=== PATIENT | male | born 1950 | race Caucasian/White ===

== ENCOUNTER 2018-09-01 21:14 | Inpatient (IN) | payer MEDICARE ==
[~2018-09-01] VITALS: Ht 170.2 cm; Wt 95.4 kg
[2018-09-01 21:27] LABS: BASOPHILS ABSOLUTE AUTO 0.07 K/mm3 (0.00-0.23); BASOPHILS PERCENT AUTO 1 % (0-2); EOSINOPHILS ABSOLUTE AUTO 0.18 K/mm3 (0.00-0.68); EOSINOPHILS PERCENT AUTO 1 % (0-6); Hematocrit 44.9 % (37.0-53.0); IMMATURE GRAN ABSOLUTE AUTO 0.07 K/mm3 (0.00-0.10); IMMATURE GRAN PERCENT AUTO 1 % (0-1); LYMPHOCYTES ABSOLUTE AUTO 1.18 K/mm3 (0.84-5.20); LYMPHOCYTES PERCENT AUTO 8 % (21-46); MONOCYTES ABSOLUTE AUTO 0.68 K/mm3 (0.16-1.47); MONOCYTES PERCENT AUTO 5 % (4-13); Mean Corpuscular HGB 28.9 pg (26.0-34.0); Mean Corpuscular HGB Conc 31.2 g/dL (31.5-36.5); Mean Corpuscular Volume 93 fL (80-100); Mean Platelet Volume 10.2 fL (9.1-12.4); NEUTROPHILS ABSOLUTE AUTO 12.37 K/mm3 (1.96-9.15); NEUTROPHILS PERCENT AUTO 85 % (41-73); Platelet Count 381 K/mm3 (150-400); RDW Coefficient Variation 13.9 % (11.7-14.2); RDW Standard Deviation 47.3 fL (35.1-46.3); Red Blood Cell Count 4.85 M/mm3 (4.30-5.90); White Blood Cell Count 14.55 K/mm3 (4.00-11.30)
[2018-09-01] MEDS ORDERED: Prinivil10 MG PO (21:37)
[2018-09-01] MEDS ORDERED: Lipitor20 MG PO (21:38)
[2018-09-01] MEDS ORDERED: Aspir 8181 MG PO (21:38)
[2018-09-01] MEDS ORDERED: FURO20 PO (21:38)
[2018-09-01] MEDS ORDERED: METF500 PO (21:38)
[2018-09-01] MEDS ORDERED: CARV3.125 PO (21:39)
[2018-09-01 21:47] LABS: Alanine Aminotransfer (ALT/SGP 48 U/L (12-78); Albumin, Blood 3.3 g/dL (3.4-5.0); Albumin/Globulin Ratio 0.8 (0.8-1.8); Alk Phos 71 U/L (50-136); Anion Gap 6 mmol/L (6-16); Aspartate Aminotrans (AST/SGOT 32 U/L (12-37); Bilirubin, Total 0.7 mg/dL (0.1-1.0); Blood Urea Nitrogen 34 mg/dL (8-24); Bun/Creatinine Ratio 27.4 (12.0-20.0); CO2, Blood 27 mmol/L (21-32); Calcium, Blood 9.1 mg/dL (8.5-10.1); Chloride, Blood 105 mmol/L (98-108); Creatinine, Blood 1.24 mg/dL (0.60-1.20); Globulin, Blood 4.3 g/dL (2.2-4.0); Glomerular Filtration Rate >60 (60-); Glucose, Blood 185 mg/dL (70-99); Potassium, Blood 4.4 mmol/L (3.5-5.5); Sodium, Blood 138 mmol/L (136-145); Total Protein, Blood 7.6 g/dL (6.4-8.2)
--- NOTE | 2018-09-02 04:11 | NUR ---
0250 68 Y/O MALE ADMITTED TO RM 305 FROM ER. THIS NURSE HAD MACHINE SNELLER COME TO ROOM AND LOCK UP MONEY FROM WALLET IN HOSPITAL SAFE. PT INITIALLY THOUGHT HE HAD BROUGHT HIS WALLET AND 6 PILL BOTTLES WITH HIM WITH THIS NURSE CALLING ER AND SPEAKING WITH CARINE MARIA REGARDING THIS ISSUE AND SHE VOICED PT HAD BEEN ADVISED THAT NO PILL BOTTLES WERE WITH HIM UPON PRESENTATION TO ER. ER STAFF LOOKED THRU LINEN AND WAS UNABLE TO LOCATE WALLET CLAIMED. THIS NURSE ADVISED EMMIE SILVA RN OF THE ABOVE. PT DENIES CHEST PAIN, NAUSEA OR SOB. PT ALERT AND ORIENTED X 3. PT GIVEN PUDDING AND ICE CREAM PRIOR TO SLEEPING THIS AM.
[2018-09-02 04:45] LABS: BASOPHILS ABSOLUTE AUTO 0.08 K/mm3 (0.00-0.23); BASOPHILS PERCENT AUTO 1 % (0-2); EOSINOPHILS PERCENT AUTO 1 % (0-6); Hemoglobin 14.4 g/dL (13.5-17.5); IMMATURE GRAN ABSOLUTE AUTO 0.05 K/mm3 (0.00-0.10); IMMATURE GRAN PERCENT AUTO 0 % (0-1); LYMPHOCYTES ABSOLUTE AUTO 1.25 K/mm3 (0.84-5.20); LYMPHOCYTES PERCENT AUTO 9 % (21-46); MONOCYTES ABSOLUTE AUTO 0.68 K/mm3 (0.16-1.47); MONOCYTES PERCENT AUTO 5 % (4-13); Mean Corpuscular HGB 29.3 pg (26.0-34.0); Mean Corpuscular HGB Conc 30.6 g/dL (31.5-36.5); Mean Platelet Volume 10.3 fL (9.1-12.4); NEUTROPHILS ABSOLUTE AUTO 11.68 K/mm3 (1.96-9.15); NEUTROPHILS PERCENT AUTO 84 % (41-73); Platelet Count 332 K/mm3 (150-400); RDW Coefficient Variation 14.1 % (11.7-14.2); RDW Standard Deviation 49.3 fL (35.1-46.3); Red Blood Cell Count 4.92 M/mm3 (4.30-5.90); White Blood Cell Count 13.84 K/mm3 (4.00-11.30)
[2018-09-02 04:46] LABS: Mean Corpuscular Volume 96 fL (80-100)
[2018-09-02 05:04] LABS: Alanine Aminotransfer (ALT/SGP 48 U/L (12-78); Albumin, Blood 3.4 g/dL (3.4-5.0); Albumin/Globulin Ratio 0.8 (0.8-1.8); Alk Phos 75 U/L (50-136); Anion Gap 6 mmol/L (6-16); Aspartate Aminotrans (AST/SGOT 29 U/L (12-37); Bilirubin, Total 0.7 mg/dL (0.1-1.0); Blood Urea Nitrogen 33 mg/dL (8-24); Bun/Creatinine Ratio 30.3 (12.0-20.0); CO2, Blood 27 mmol/L (21-32); Calcium, Blood 9.1 mg/dL (8.5-10.1); Chloride, Blood 103 mmol/L (98-108); Creatinine, Blood 1.09 mg/dL (0.60-1.20); Globulin, Blood 4.4 g/dL (2.2-4.0); Glomerular Filtration Rate >60 (60-); Glucose, Blood 135 mg/dL (70-99); Potassium, Blood 4.3 mmol/L (3.5-5.5); Sodium, Blood 136 mmol/L (136-145); Total Protein, Blood 7.8 g/dL (6.4-8.2)
--- NOTE | 2018-09-02 05:54 | NUR ---
0530 PT TROPONIN 0.076 (PREVIOUS LEVEL WAS 0.075). NO SIGNIFICANT CHANGE SINCE LAST LAB DRAW AND THUS MD WILL NOT BE NOTIFED. THIS NURSE ADVISED JANY AQUINO RN OF THIS INFO.
--- NOTE | 2018-09-02 15:30 | NUR ---
PATIENT REPORTED TO FEELING LIGHT HEADED AND DIZZY. VITALS TAKEN RESULTING IN LOW BP. DOCTOR NOTIFIED, CARDIAC LABS ORDERED AND BOLUS GIVEN PER ORDER. PATIENT APPEARS TO FALL ASLEEP VERY EASILY BUT IS ABLE TO BE AROUSED . NO COMPLAINTS OF CHEST PAIN OR SOB. NO DISTRESS NOTED OTHER THAN THOSE LISTED. WILL CONTINUE TO MONITOR.
--- NOTE | 2018-09-02 17:58 | NUR ---
PATIENT HAS IMPROVED SINCE NS BOLUS. TROP LEVELS CONTINUE TO DECLINE. NO COMPLAINTS OF CHEST PAIN,SOB OR NV. PATIENT HAS IMPROVED IN MENTATION AND IS ALERT AND ORIENTED AT THIS TIME. HE STATED EARLIER HE IS NOT USALLY THIS TIRED. HE IS HAVING OUTPUT WHICH REMAINS DARK YELLOW. PATIENT ENCOURAGED TO DRINK.
--- NOTE | 2018-09-03 04:09 | NUR ---
SHIFT SUMMARY: 68 Y/O MALE RESTED COMFORTABLY IN BED ALL SHIFT WITH NO C/O PAIN, SOB OR NAUSEA. PT SLEPT IN HIGH FOWLERS ALL SHIFT. PT IS ALERT AND ORIENTED X 3, ABLE TO TRANSFER AND AMBULATE BATHROOM AND BACK WITHOUT ISSUE. PTS BED LOW POSITION, CALL LIGHT AT SIDE.
--- NOTE | 2018-09-03 05:28 | NUR ---
7600 THIS NURSE RECEIVED CALL FROM COMPENSATION SPECIALIST--MORE, THAT PATIENT HAD 15 BEAT V-TACH AND THEN IMMEDIATELY CONVERTED TO NSR. PT APPEARS HAPPY, DENIES CHEST PAIN OR SOB. PT VITAL SIGNS ARE STABLE. MEMIE SILVA RN CHARGE NURSE ADVISED. WILL CONTINUE TO MONITOR.
[2018-09-03 05:58] LABS: BASOPHILS ABSOLUTE AUTO 0.05 K/mm3 (0.00-0.23); BASOPHILS PERCENT AUTO 0 % (0-2); EOSINOPHILS ABSOLUTE AUTO 0.27 K/mm3 (0.00-0.68); EOSINOPHILS PERCENT AUTO 2 % (0-6); Hematocrit 42.9 % (37.0-53.0); Hemoglobin 13.2 g/dL (13.5-17.5); IMMATURE GRAN ABSOLUTE AUTO 0.04 K/mm3 (0.00-0.10); IMMATURE GRAN PERCENT AUTO 0 % (0-1); LYMPHOCYTES ABSOLUTE AUTO 1.36 K/mm3 (0.84-5.20); LYMPHOCYTES PERCENT AUTO 10 % (21-46); MONOCYTES PERCENT AUTO 9 % (4-13); Mean Corpuscular HGB 29.3 pg (26.0-34.0); Mean Corpuscular HGB Conc 30.8 g/dL (31.5-36.5); Mean Corpuscular Volume 95 fL (80-100); Mean Platelet Volume 10.9 fL (9.1-12.4); NEUTROPHILS ABSOLUTE AUTO 11.16 K/mm3 (1.96-9.15); NEUTROPHILS PERCENT AUTO 79 % (41-73); Platelet Count 336 K/mm3 (150-400); RDW Coefficient Variation 14.1 % (11.7-14.2); RDW Standard Deviation 49.7 fL (35.1-46.3); White Blood Cell Count 14.08 K/mm3 (4.00-11.30)
--- NOTE | 2018-09-03 08:00 | NUR ---
PT PLEASANT COOP A/O. SOME PAIN 4/10 IN ABD. LOW RT. THERE IS BRUISING NOTED. SMALL HARDNESS BELOW SKIN. MAYBE 2-[address] BLANCHARD. H/R REG, NO MURMER NOTED. ON TELE: NSR WITH OCC PVC'S RATE 81. 15 BEAT RUN VTACH AT 0430 THIS AM. PT STATED ASYMPTOMATIC. BT X4 LAST BM THIS AM. VOIDS PER BATHROOM. SBA. BED IN LOW POSITION, CALL LITE IN REACH, CALLS APPROP
--- NOTE | 2018-09-03 08:12 | NUR ---
0700 pt c/o on low rt abd horizontal firmness noted. 07/11. vss, called dr youngblood. ct abd pelvis w/o contrast
--- NOTE | 2018-09-03 08:16 | NUR ---
WITH PRIOR CALL TO DR COLMENARES ADVISLoreta PT HAD 15 BEAT RUN VTACH THIS AM AT 0430 PER LORENZO HAWK. PT WAS SLEEPING, NOT AWARE OF VTACH RUN
--- NOTE | 2018-09-03 12:51 | NUR ---
EXTRA DOSE OF ROCEFIN, CALLED DR BLANCHARD TO CLARIFY. SHE DOES WANT GIVEN NOW.
--- NOTE | 2018-09-03 13:25 | NUR ---
Spiritual care intitial visit: Mr. Fam was very tired and politely dismissive of pastoral care. Advised I would remain available to provide support and encouragement.
--- NOTE | 2018-09-03 14:23 | NUR ---
PHYLLIS, CENTRAL OFFICE REPAIRER SUPERVISOR CALLED 7 BEAT RUN VTACH AT 1423. PT ASYMPTOMATIC. NAPPING IN CHAIR. WOKE PT. HE STATES NO SYMPTOMS.
--- NOTE | 2018-09-03 15:42 | NUR ---
FAXED REQUEST TO [facility] FOR MED RECORDS . PLACED REQUEST IN CHART.
--- NOTE | 2018-09-03 15:43 | NUR ---
CALLED DR BLANCHARD. 7 BEAT RUN VTACH AT 1420. SHE ORDERED CARDIAC CONSULT
--- NOTE | 2018-09-03 17:00 | NUR ---
pt vitals show pulse 37. rechecked with tele. has not been down to 37. running at 62.
--- NOTE | 2018-09-03 17:25 | NUR ---
PT BLADDER SCAN 465 VOIDED OF 225, NET RETAINING 240
--- NOTE | 2018-09-03 17:57 | NUR ---
PT PLEASANT COOP TODAY. PAIN IN ABD RESOLVED. EATING WELL. BLADDER SCAN SHOWED 465 THEN UNINATED 225. RESIDUAL 240. DID HAVE BM TODAY. FEELS SOME BLOATED AT THIS TIME. FEELS A LITTLE POORLY OVERALL . NO OTHER CONCERNS AT THIS TIME. BED IN LOW POSITION, CALL LITE IN REACH, CALLS APPROP
--- NOTE | 2018-09-03 18:16 | NUR ---
TLE CALLED PT HAD RUN VTACH, 25 BEATS. NEW VS. 132/84. PULSE PER TELE NSR AT 70. PT STATES FEELS A LITTLE POORLY, BUT OKAY. FEELS A LITTLE BLOATED. STATES HAD BM TODAY.
--- NOTE | 2018-09-03 18:18 | NUR ---
ORDERS FROM DR BLANCHARD. PROCALCITONIN LAB AND TRY CLL DR CASTILLO AGAIN
--- NOTE | 2018-09-03 18:21 | NUR ---
LMTC WITH DR CASTILLO ANS SVC. PER REQUEST OF DR BLANCHARD
[2018-09-04 04:48] LABS: BASOPHILS ABSOLUTE AUTO 0.06 K/mm3 (0.00-0.23); BASOPHILS PERCENT AUTO 1 % (0-2); EOSINOPHILS ABSOLUTE AUTO 0.23 K/mm3 (0.00-0.68); EOSINOPHILS PERCENT AUTO 2 % (0-6); Hematocrit 43.6 % (37.0-53.0); Hemoglobin 13.5 g/dL (13.5-17.5); IMMATURE GRAN ABSOLUTE AUTO 0.03 K/mm3 (0.00-0.10); IMMATURE GRAN PERCENT AUTO 0 % (0-1); LYMPHOCYTES ABSOLUTE AUTO 1.25 K/mm3 (0.84-5.20); LYMPHOCYTES PERCENT AUTO 11 % (21-46); MONOCYTES ABSOLUTE AUTO 0.92 K/mm3 (0.16-1.47); MONOCYTES PERCENT AUTO 8 % (4-13); Mean Corpuscular HGB 29.1 pg (26.0-34.0); Mean Corpuscular Volume 94 fL (80-100); Mean Platelet Volume 10.6 fL (9.1-12.4); NEUTROPHILS PERCENT AUTO 79 % (41-73); Platelet Count 335 K/mm3 (150-400); RDW Coefficient Variation 14.1 % (11.7-14.2); RDW Standard Deviation 48.7 fL (35.1-46.3); Red Blood Cell Count 4.64 M/mm3 (4.30-5.90); White Blood Cell Count 11.79 K/mm3 (4.00-11.30)
[2018-09-04 05:14] LABS: Alanine Aminotransfer (ALT/SGP 33 U/L (12-78); Albumin, Blood 2.9 g/dL (3.4-5.0); Albumin/Globulin Ratio 0.7 (0.8-1.8); Alk Phos 67 U/L (50-136); Anion Gap 2 mmol/L (6-16); Aspartate Aminotrans (AST/SGOT 14 U/L (12-37); Bilirubin, Total 0.6 mg/dL (0.1-1.0); Blood Urea Nitrogen 22 mg/dL (8-24); Bun/Creatinine Ratio 22.2 (12.0-20.0); CO2, Blood 32 mmol/L (21-32); Calcium, Blood 8.4 mg/dL (8.5-10.1); Chloride, Blood 105 mmol/L (98-108); Creatinine, Blood 0.99 mg/dL (0.60-1.20); Globulin, Blood 4.4 g/dL (2.2-4.0); Glomerular Filtration Rate >60 (60-); Glucose, Blood 117 mg/dL (70-99); Potassium, Blood 4.8 mmol/L (3.5-5.5); Sodium, Blood 139 mmol/L (136-145); Total Protein, Blood 7.3 g/dL (6.4-8.2)
--- NOTE | 2018-09-04 06:28 | NUR ---
SHIFT SUMMARY PT SLEPT WELL T/O NIGHT. AOX4. VSS. TELE IN PLACE @NSR W/OCCASIONAL PVC'S & HR 72 PER PCU ONLINE MERCHANDISING COORDINATOR. DENIES SOB, DIZZINESS OR NAUSEA. REPORTS 4/10 PAIN ONLY W/PALPATION OF RUQ ABD, DENIES NEED FOR PAIN MEDICATION. HAS BEEN NPO SINCE MIDNIGHT FOR ANTICIPATED HIDA SCAN THIS AM. NS RUNNING @100ML/HR. INDEPENDENT TO RESTROOM. CALL LIGHT IN REACH.
--- NOTE | 2018-09-04 08:17 | NUR ---
PATIENT DID NOT EAT BREAKFAST THIS SHIFT DUE TO BEING NPO AT THIS TIME DUE TO A PROCEDURE. BREAKFST IS BEING HELD FOR AFTER PROCEDURE.
--- NOTE | 2018-09-04 15:53 | NUR ---
SHIFT SUMMARY NO ACUTE CHANGES. PATIENT DENIES PAIN, NAUSEA, AND SHORTNESS OF BREATH. PATIENT STATES ABDOMEN IS ONLY PAINFUL IF PALPATED. PATIENT HAD ONE 7 BEAT RUN OF VTACH THIS AM, HOSPITALIST INFORMED. ORDERS FOR MAGNESIUM LAB GIVEN. HIDA SCAN COMPLETED. PATIENT UP INDEPENDENTLY IN ROOM. CALL LIGHT IN REACH, WILL CONTINUE TO MONITOR.
[2018-09-05 04:58] LABS: BASOPHILS ABSOLUTE AUTO 0.09 K/mm3 (0.00-0.23); BASOPHILS PERCENT AUTO 1 % (0-2); EOSINOPHILS PERCENT AUTO 2 % (0-6); Hematocrit 44.3 % (37.0-53.0); Hemoglobin 13.8 g/dL (13.5-17.5); IMMATURE GRAN ABSOLUTE AUTO 0.05 K/mm3 (0.00-0.10); IMMATURE GRAN PERCENT AUTO 0 % (0-1); LYMPHOCYTES ABSOLUTE AUTO 1.29 K/mm3 (0.84-5.20); LYMPHOCYTES PERCENT AUTO 10 % (21-46); MONOCYTES ABSOLUTE AUTO 0.88 K/mm3 (0.16-1.47); MONOCYTES PERCENT AUTO 7 % (4-13); Mean Corpuscular HGB 29.2 pg (26.0-34.0); Mean Corpuscular HGB Conc 31.2 g/dL (31.5-36.5); Mean Corpuscular Volume 94 fL (80-100); Mean Platelet Volume 10.9 fL (9.1-12.4); NEUTROPHILS ABSOLUTE AUTO 11.03 K/mm3 (1.96-9.15); NEUTROPHILS PERCENT AUTO 81 % (41-73); Platelet Count 380 K/mm3 (150-400); RDW Standard Deviation 48.1 fL (35.1-46.3); Red Blood Cell Count 4.73 M/mm3 (4.30-5.90); White Blood Cell Count 13.64 K/mm3 (4.00-11.30)
[2018-09-05 05:15] LABS: Albumin, Blood 2.7 g/dL (3.4-5.0); Anion Gap 5 mmol/L (6-16); Blood Urea Nitrogen 29 mg/dL (8-24); Bun/Creatinine Ratio 25.7 (12.0-20.0); CO2, Blood 30 mmol/L (21-32); Calcium, Blood 8.2 mg/dL (8.5-10.1); Chloride, Blood 104 mmol/L (98-108); Creatinine, Blood 1.13 mg/dL (0.60-1.20); Glomerular Filtration Rate >60 (60-); Glucose, Blood 169 mg/dL (70-99); Phosphorus, Blood 3.4 mg/dL (2.5-4.9); Potassium, Blood 4.1 mmol/L (3.5-5.5); Sodium, Blood 139 mmol/L (136-145)
--- NOTE | 2018-09-05 07:04 | NUR ---
SHIFT SUMMARY PT IS A 68 Y/O MALE, ADMITTED FOR EPIGASTRIC PAIN. HE IS A&O X 4, AND INDEPENDENT IN THE ROOM. HE ONLY REPORTED PAIN IN HIS RUQ WHEN IT WAS PALPATED, AND DENIED ANY NAUSEA OR SOB DURING THE NIGHT. VITALS REMAINED STABLE. PER THE STEEL MELTER, NO RUNS OF V-TACH WERE NOTED DURING THE NIGHT, AND PT REMAINED IN NSR WITH OCC PVCS. NO OTHER ACUTE CHANGES IN PT CONDITION NOTED. REPORT GIVEN TO ONCOMING RN.
--- NOTE | 2018-09-05 08:48 | NUR ---
PT GAVE ME PERMISSION TO CARE FOR HIM ON 09/05/2018
[2018-09-05] MEDS ORDERED: Norvasc2.5 MG PO (12:13)
[2018-09-05] MEDS ORDERED: CEPH500 PO (12:14)
[2018-09-05] MEDS ORDERED: METR500 PO (12:15)
[2018-09-05] MEDS ORDERED: Pacerone400 MG PO (12:19)
--- NOTE | 2018-09-05 15:03 | NUR ---
DISCHARGE DISCHARGE MEDICATIONS AND INSTRUCTIONS EXPLAINED TO PATIENT. AMIODARONE TAPER AND SIDE EFFECTS EXPLAINED. PATIENT STATED UNDERSTANDING. IV REMOVED WITHOUT DIFFICULTY. BELONGINGS WITH PATIENT. PATIENT TRANSFERED TO PRIVATE VEHICLE VIA WHEELCHAIR.
== END 2018-09-05 14:04 | disposition home or self-care (01) | DRG 392 ==
LOC: ER 21:14 → MEDS 21:15 → ENPENDDIS 09-05 11:44 → MEDS 09-05 14:04
PROVIDERS: Emergency Medicine; Family Medicine; Internal Medicine; ADMIT Hospitalist
DX: R10.13 Epigastric pain (principal); I42.0 Dilated cardiomyopathy; I47.2 Ventricular tachycardia; I50.22 Chronic systolic (congestive) heart failure; I25.10 Atherosclerotic heart disease of native coronary artery without angina pectoris; E11.9 Type 2 diabetes mellitus without complications; E78.5 Hyperlipidemia, unspecified; I11.0 Hypertensive heart disease with heart failure; Z87.891 Personal history of nicotine dependence; E66.9 Obesity, unspecified; Z68.33 Body mass index [BMI] 33.0-33.9, adult
CPT/HCPCS: 36415; 74176; 76705; 78226; 80053; 80069; 82947; 83690; 83735; 84145; 84484; 85025; 93005; 93010; 96365; 96366; 96372; 96372-59; 96374; 96375; 99285-25; A9537; G0378; J0696; J1170; J1644; J1650; J3010; J7030; J7050